=== PATIENT | female | born 1990 | race American Indian/Alaskan Native ===

== ENCOUNTER 2018-11-26 03:19 | Inpatient (IN) | payer BC ==
[2018-11-26 05:35] LABS: Bilirubin,Urine NEG (Negative); Blood,Urine NEG (Negative); Color,Urine Yellow (Yellow); Protein,Urine <15 mg/dL mg/dL (Negative); RBC,Urine < 1.0 /HPF (0.0-6.0)
[2018-11-26 05:36] LABS: HCG Qualitative,Urine Negative (Negative)
[2018-11-26] MEDS ORDERED: FIORICET PO ONE (08:07)
--- NOTE | 2018-11-26 08:07 | Emergency Department Report ---
ED Headache HPI - General Chief Complaint: Headache Stated Complaint: CHRONIC HEADACHE FOR PAST MONTH Time Seen by Provider: 11/26/18 07:58 Source: patient, family Exam Limitations: no limitations - History of Present Illness Initial Comments: Patient is a 28 year-old female who comes to the ER today complaining of a headache for over a month. She states that it comes at night she takes Tylenol and then it goes away: However, it comes right back. It sounds like a cyclical headache that is worse in the evenings. She has no nausea vomiting or photophobia. She has no history of migraines. She has no history of recent head trauma or fall. Past medical history Positive for anemia, patient is unable to provide the details of the anemia, however she states that it's been several years since she has had her blood levels checked. allergy: none Past surgical history denies. Last menstrual period October 29. Primary care physician - none Home medications none, patient does have an IUD 1 para 0 AB 1(miscarriage) mom and dad alive and well denies cig/ etho/ drugs Timing/Duration: 1 week Quality: moderate Head Injury Location: global Recent Head Trauma: no recent headache/trauma, frequent headaches Modifying Factors: worse with: cold therapy, exposure to light, immobilization, medication, movement, rest, other Associated Symptoms: fatigue Allergies/Adverse Reactions: Allergies No Known Allergies Allergy (Unverified 11/26/18 03:21) ED Review of Systems ROS: Stated complaint: CHRONIC HEADACHE FOR PAST MONTH Other details as noted in HPI Comment: All other systems reviewed and negative Cardiovascular: denies: chest pain, palpitations, dyspnea on exertion Endocrine: intolerance to cold. denies: excessive sweating Gastrointestinal: other (heavy menses). denies: abdominal pain Genitourinary: denies: urgency Musculoskeletal: denies: back pain Skin: denies: rash Neurological: as per HPI, headache. denies: weakness, numbness, paresthesias, confusion, abnormal gait, vertigo Psychiatric: denies: depression Hematological/Lymphatic: denies: easy bleeding ED Past Medical Hx - Past Medical History Previous Medical History?: Yes Additional medical history: anemia - Surgical History Past Surgical History?: No Additional Surgical History: IUD - Family History Family history: no significant - Social History Smoking Status: Never Smoker Substance Use Type: None ED Physical Exam - General Limitations: No Limitations General appearance: alert, other (fatigued) - Head Head exam: Present: normocephalic - Eye Eye exam: Present: PERRL - ENT ENT exam: Present: mucous membranes dry, other (pale mucous membranes) - Neck Neck exam: Present: normal inspection - Respiratory Respiratory exam: Present: normal lung sounds bilaterally - Cardiovascular Cardiovascular Exam: Present: regular rate, normal heart sounds - GI/Abdominal GI/Abdominal exam: Present: soft, normal bowel sounds - Rectal Rectal exam: Present: deferred - Extremities Exam Extremities exam: Present: normal inspection, full ROM - Back Exam Back exam: Present: normal inspection, full ROM - Neurological Exam Neurological exam: Present: alert, oriented X3, CN II-XII intact, normal gait - Psychiatric Psychiatric exam: Present: normal affect, normal mood - Skin Skin exam: Present: warm, dry, intact ED Course Vital Signs 11/26/18 11/26/18 03:29 06:20 Temperature 98.8 F 99.2 F Pulse Rate 98 H 86 Respiratory 18 16 Rate Blood Pressure 125/48 112/44 O2 Sat by Pulse 100 100 Oximetry ED Medical Decision Making - Lab Data Result diagrams: 11/26/18 08:17 11/26/18 08:17 - Medical Decision Making Labs 11/26/18 11/26/18 11/26/18 04:45 08:17 08:17 WBC 5.1 RBC 2.38 L Hgb 4.2 L* Hct 13.9 L* MCV 58 L MCH 18 L MCHC 30 RDW 27.7 H Plt Count 363 Sodium 140 Potassium 4.3 Chloride 105.0 Carbon Dioxide 24 Anion Gap 15 BUN 5 L Creatinine 0.5 L Estimated GFR > 60 BUN/Creatinine Ratio 10 Glucose 94 Calcium 8.9 Urine Color Yellow Urine Turbidity Clear Urine pH 7.0 Ur Specific [place] 1.012 Urine Protein <15 mg/dl Urine Glucose (UA) Neg Urine Ketones Neg Urine Blood Neg Urine Nitrite Neg Urine Bilirubin Neg Urine Urobilinogen 4.0 Ur Leukocyte Esterase Neg Urine WBC (Auto) 1.0 Urine RBC (Auto) < 1.0 U Epithel Cells (Auto) < 1.0 Urine HCG, Qual Negative Vital Signs 11/26/18 11/26/18 03:29 06:20 Temperature 98.8 F 99.2 F Pulse Rate 98 H 86 Respiratory 18 16 Rate Blood Pressure 125/48 112/44 O2 Sat by Pulse 100 100 Oximetry pt co headache but is pale and fatigued on exam. She states she has not had her blood levels checked in some time. Labs noted no evidence of bleeding menses 1 month ago; has IUD; mod. heavy periods per pt abd snt Discussed with Dr Eric Gaffney notified and will admit for evaluation. Critical care attestation.: If time is entered above; I have spent that time in minutes in the direct care of this critically ill patient, excluding procedure time. ED Disposition Clinical Impression: Symptomatic anemia Disposition: - OP ADMIT IP TO THIS HOSP Is pt being admited?: Yes Does the pt Need Aspirin: No Condition: Stable Time of Disposition: 10:00
[2018-11-26 08:39] LABS: Mean Corpuscular HGB Conc 30 % (30-34); Platelet Count 363 K/mm3 (140-440); Red Blood Count 2.38 M/mm3 (3.65-5.03)
[2018-11-26 08:51] LABS: BUN/Creatinine Ratio 10; Blood Urea Nitrogen 5 mg/dL (7-17); Calcium 8.9 mg/dL (8.4-10.2); Hemolysis Index 1
[2018-11-26 09:04] LABS: Hematocrit 13.9 % (30.3-42.9); Hemoglobin 4.2 gm/dl (10.1-14.3); Mean Corpuscular Volume 58 fl (79-97); Red Cell Distribution Width 27.7 % (13.2-15.2)
[2018-11-26] MEDS ORDERED: NACL 0.9% 500 ML 500 ML IV ONE (10:10)
--- NOTE | 2018-11-26 11:23 | History and Physical Report ---
History of Present Illness Date of examination: 11/26/18 Date of admission: 11/26/18 10:09 Chief complaint: Headache/symptomatic anemia History of present illness: 28-year-old -[place] African female patient with no significant past medical history except for heavy periods and menorrhagia was admitted through emergency room with chronic headache of one month duration Patient was initially evaluated and noted to have severe anemia probably iron deficiency with hemoglobin of 4.2. Patient complains of some dizziness and generalized weakness Patient denies nausea vomiting or abdominal pain Complains of intermittent fatigued and dizziness Denies chest pain or palpitation Patient denies hematuria hematemesis or melena History of blood transfusion many years ago Past History Past Medical History: anemia. denies: diabetes, hypertension Past Surgical History: Other (miscarriage, IUD) Social history: lives with family, full code. denies: smoking, alcohol abuse Family history: hypertension Medications and Allergies Allergies Allergy/AdvReac Type Severity Reaction Status Date / Time No Known Allergies Allergy Unverified 11/26/18 03:21 Review of Systems Constitutional: fatigue, weakness, no weight loss, no weight gain, no fever, no chills Ears, nose, mouth and throat: no nasal congestion, no nasal discharge Cardiovascular: no chest pain, no orthopnea, no palpitations Respiratory: no cough with sputum, no shortness of breath Gastrointestinal: no abdominal pain, no nausea, no vomiting Genitourinary Female: menorrhagia, no dyspareunia, no pelvic pain Musculoskeletal: no myalgias, no arthritis Integumentary: no rash, no lesions Neurological: headaches, no parathesias, no numbness, no syncope Psychiatric: no anxiety Endocrine: no cold intolerance, no heat intolerance, no polyphagia, no excessive thirst Hematologic/Lymphatic: no easy bruising, no easy bleeding Allergic/Immunologic: no urticaria, no allergic rhinitis Exam - Constitutional Vitals: Temp Pulse Resp BP Pulse Ox 99.2 F 86 16 112/44 100 11/26/18 06:20 11/26/18 06:20 11/26/18 06:20 11/26/18 06:20 11/26/18 06:20 General appearance: Present: mild distress, well-nourished, cachectic, other (pale) - EENT Eyes: Present: PERRL, EOM intact - Neck Neck: Present: supple, normal ROM - Respiratory Respiratory effort: normal Respiratory: bilateral: diminished, negative: rales, rhonchi, wheezing - Cardiovascular Rhythm: regular Heart Sounds: Present: S1 & S2 - Extremities Extremities: no ischemia, No edema - Abdominal General gastrointestinal: Present: soft, non-tender, non-distended, normal bowel sounds - Integumentary Integumentary: Present: clear, warm - Musculoskeletal Musculoskeletal: strength equal bilaterally, generalized weakness - Psychiatric Psychiatric: appropriate mood/affect, cooperative - Neurologic Neurologic: CNII-XII intact, moves all extremities Results - Labs CBC & Chem 7: 11/26/18 08:17 11/26/18 08:17 Labs: Abnormal lab results 11/26/18 11/26/18 11/26/18 Range/Units 08:17 08:17 10:32 RBC 2.38 L (3.65-5.03) M/mm3 Hgb 4.2 L* (10.1-14.3) gm/dl Hct 13.9 L* (30.3-42.9) % MCV 58 L (79-97) fl MCH 18 L (28-32) pg RDW 27.7 H (13.2-15.2) % BUN 5 L (7-17) mg/dL Creatinine 0.5 L (0.7-1.2) mg/dL Crossmatch See Detail Assessment and Plan --Symptomatic anemia; Type and cross, transfuse 2 units of PRBC, iron panel Ferrous sulfate, stool for occult blood Pelvic ultrasound is needed to rule out MOTORCYCLE DELIVERER causes of anemia --Headache; probably secondary to severe anemia, blood transfusion Symptomatic management --Acute versus acute on chronic blood loss anemia; Blood transfusion --Menorrhagia/heavy monthly periods; no active bleeding at this point patient advised to see MOTORCYCLE DELIVERER, For further evaluation and management upon discharge --DVT prophylaxis; SCD Pharmacologic anticoagulation in view of anemia Closely monitor the patient and adjust the management as needed Plan of care reviewed with the patient, family members at the bedside as well as the nurse I spent 45 minutes to coordinate this admission
[2018-11-26] MEDS ORDERED: TYLENOL PO PRN (11:24)
[2018-11-26 20:22] LABS: Hemoglobin 6.6 gm/dl (10.1-14.3)
[2018-11-26] MEDS: FEOSOL PO SCH (21:29)
[2018-11-26] MEDS: PEPCID IV SCH (21:30)
[2018-11-27 06:03] LABS: Hematocrit 21.3 % (30.3-42.9); Hemoglobin 6.7 gm/dl (10.1-14.3); Mean Corpuscular HGB Conc 31 % (30-34); Platelet Count 271 K/mm3 (140-440); Red Blood Count 3.22 M/mm3 (3.65-5.03)
[2018-11-27 06:06] LABS: Mean Corpuscular Volume 66 fl (79-97); Red Cell Distribution Width 30.8 % (13.2-15.2)
[2018-11-27 06:20] LABS: Alanine Aminotransferase 101 units/L (7-56); Albumin 4.1 g/dL (3.9-5); BUN/Creatinine Ratio 8; Blood Urea Nitrogen 4 mg/dL (7-17); Calcium 8.6 mg/dL (8.4-10.2); Hemolysis Index 20; Iron 83 ug/dL (37-170); Total Iron Binding Capacity 451 mcg/dL (250-450)
[2018-11-27 06:55] LABS: Basophils % (Manual) 0 % (0.0-1.8); Eosinophils % (Manual) 0 % (0.0-4.3); Hypochromasia 1+; Platelet Estimate Consistent w Auto; Target Cells Few; Tear Drop Cells Few; Total Cells Counted 100
[2018-11-27] MEDS ORDERED: NACL 0.9% 500 ML 500 ML IV ONE (07:39)
[2018-11-27] MEDS: FEOSOL PO SCH (09:26)
[2018-11-27] MEDS: PEPCID IV SCH (09:26)
--- NOTE | 2018-11-27 11:29 | Discharge Summary ---
Providers - Providers Date of Admission: 11/26/18 10:09 Date of discharge: 11/27/18 Attending physician: SAURABH SHAH Primary care physician: MERCHANDISE EXAMINER Hospitalization Reason for admission: Head ache/gen weakness/symptomatic anemia Condition: Stable Procedures: Transfusion of total 3 units PRBC Hospital course: 28-year-old -[place] female patient with no significant past medical history except for heavy periods and menorrhagia was admitted through emergency room with chronic headache of one month duration Patient was initially evaluated and noted to have severe anemia probably iron deficiency with hemoglobin of 4.2. Patient complains of some dizziness and generalized weakness.Denies hemetemesis,thai or rectal bleeding Patient did not have active bleeding. Symptomatically managed and patient received total 3 units PRBC. Hb improved from 4.2 to 8.1., Patient's symptoms significantly improved.Pt needs out pt Security Services Manager and GI evaluation. Patient has transaminitis,no h/o alcohol use, Pt advised to see private GI for further evaluation of anemia and transaminitis. Today pt is comfortable,no new complaints,vital signs stable Physical exam is unremarkable. Stable for discharge Discharge Diagnosis --Symptomatic anemia; Type and cross, transfuse 2 units of PRBC, iron panel Ferrous sulfate, stool for occult blood Pelvic ultrasound is needed to rule out SUPERVISOR EPOXY FABRICATION causes of anemia --Headache; probably secondary to severe anemia, blood transfusion Symptomatic management --Acute versus acute on chronic blood loss anemia; Blood transfusion --Menorrhagia/heavy monthly periods; no active bleeding at this point patient advised to see SUPERVISOR EPOXY FABRICATION, For further evaluation and management upon discharge --DVT prophylaxis; SCD Pharmacologic anticoagulation in view of anemia Closely monitor the patient and adjust the management as needed Plan of care reviewed with the patient, family members at the bedside as well as the nurse Disposition: DC-01 TO HOME OR SELFCARE Time spent for discharge: 31 min Core Measure Documentation - Palliative Care Palliative Care/ Comfort Measures: Not Applicable - Core Measures Any of the following diagnoses?: none Exam - Constitutional Vitals: Temp Pulse Resp BP Pulse Ox 98.9 F 87 15 95/47 100 11/27/18 08:00 11/27/18 07:50 11/27/18 07:50 11/27/18 07:50 11/27/18 07:50 General appearance: Present: no acute distress, well-nourished - EENT Eyes: Present: PERRL, EOM intact - Neck Neck: Present: supple, normal ROM - Respiratory Respiratory effort: normal Respiratory: negative: rales, rhonchi, wheezing - Cardiovascular Rhythm: regular Heart Sounds: Present: S1 & S2 - Extremities Extremities: no ischemia, No edema - Abdominal General gastrointestinal: Present: soft, non-tender - Integumentary Integumentary: Present: clear, warm - Musculoskeletal Musculoskeletal: strength equal bilaterally - Psychiatric Psychiatric: cooperative - Neurologic Neurologic: moves all extremities Plan Activity: advance as tolerated, fall precautions Diet: regular Additional Instructions: Advised to see a private GI in 1 week, check liver tests prior to seeing GI. Advised to see private SUPERVISOR EPOXY FABRICATION in 1-2 weeks Follow up with: PRIMARY CARE, [Primary Care Provider] - 7 Days ANDREW BROWN MD [Staff Physician] - 7 Days TELMA SORTO MD [Staff Physician] - 7 Days Prescriptions: Ferrous Sulfate [Feosol 325 MG tab] 325 mg PO BID #60 tablet
[2018-11-27 12:10] LABS: Hemoglobin 8.1 gm/dl (10.1-14.3)
[2018-11-27 12:18] VITALS: BP 115/61
== END 2018-11-27 13:49 | disposition home or self-care (01) | DRG 812 ==
LOC: ED 03:19 → IMCU 10:09
PROVIDERS: ADMIT Internal Medicine; ATTEND Internal Medicine
PROC: 30233N1 Transfusion of Nonautologous Red Blood Cells into Peripheral Vein, Percutaneous Approach (ICD-10-PCS; principal; 2018-11-26)
DX: D62 Acute posthemorrhagic anemia (principal); N92.0 Excessive and frequent menstruation with regular cycle; Z82.49 Family history of ischemic heart disease and other diseases of the circulatory system; R51 Headache
CPT/HCPCS: 36415; 80048; 80053; 81001; 81025; 83550; 85007; 85014; 85018; 85025; 85027; 86850; 86900; 86901; 86920; 93005; 93010; G0378; J7040; P9016

== ENCOUNTER 2019-01-30 15:59 | Emergency (ER) | payer BC ==
--- NOTE | 2019-01-30 16:10 | Emergency Department Report ---
Blank Doc - Documentation Documentation: This is a 28-year-old female that presents with anemia. Stated was sent by PCP for a blood transfusion. This initial assessment/diagnostic orders/clinical plan/treatment(s) is/are subject to change based on patient's health status, clinical progression and re- assessment by fellow clinical providers in the ED. Further treatment and workup at subsequent clinical providers discretion. Patient/guardians urged not to elope from the ED as their condition may be serious if not clinically assessed and managed. Initial orders include: 1- Patient sent to MAIN ED for further evaluation and treatment 2- labs
[2019-01-30 16:39] LABS: Hematocrit 20.7 % (30.3-42.9); Hemoglobin 6.3 gm/dl (10.1-14.3); Mean Corpuscular HGB Conc 31 % (30-34); Platelet Count 477 K/mm3 (140-440); Red Blood Count 3.06 M/mm3 (3.65-5.03)
[2019-01-30 16:46] LABS: Mean Corpuscular Volume 68 fl (79-97); Red Cell Distribution Width 32.5 % (13.2-15.2)
[2019-01-30 16:51] LABS: BUN/Creatinine Ratio 8; Blood Urea Nitrogen 5 mg/dL (7-17); Hemolysis Index 6
[2019-01-30] MEDS ORDERED: NACL 0.9% 500 ML 500 ML IV ONE (17:01)
[2019-01-30 17:20] LABS: Basophils % (Manual) 0 % (0.0-1.8); Total Cells Counted 100
[2019-01-30 17:21] LABS: Anisocytosis 2+; Platelet Estimate Consistent w Auto
[2019-01-30 17:22] LABS: Hypochromasia 1+; Ovalocytes Few; Tear Drop Cells Few
--- NOTE | 2019-01-30 17:31 | Emergency Department Report ---
ED General Adult HPI - General Chief complaint: Medical Clearance Stated complaint: SENT BY DOCTOR / IRON Time Seen by Provider: 01/30/19 16:08 Source: patient Mode of arrival: Ambulatory Limitations: No Limitations - History of Present Illness Initial comments: 28-year-old female with a past medical history of iron deficiency anemia and menorrhagia presents to the hospital complaints of recurrent anemia requiring a blood transfusion. Patient is followed by numberer and wirer Dr. Dutton. She had outpatient blood work reporting a hemoglobin of 5.7. She was sent to the ER with a note requesting 2 units of PRBCs to be transfused in the ED. Patient denies symptoms of chest pain, shortness of breath, lightheadedness, dizziness or exertion, or syncope. She has been on her menstrual cycle since January 23 but states she is on average using 2 pads per day and it is not heavy. No pain reported. Patient was admitted here in November and received 3 units of PRBCs for hemoglobin of 4.2. - Related Data Previous Rx's Medication Instructions Recorded Last Taken Type Ferrous Sulfate [Feosol 325 MG tab] 325 mg PO BID #60 tablet 11/27/18 Unknown Rx Allergies Allergy/AdvReac Type Severity Reaction Status Date / Time No Known Allergies Allergy Unverified 11/26/18 03:21 ED Review of Systems ROS: Stated complaint: SENT BY DOCTOR / IRON Other details as noted in HPI Comment: All other systems reviewed and negative ED Past Medical Hx - Past Medical History Previous Medical History?: Yes Hx Congestive Heart Failure: No Hx Diabetes: No Hx Asthma: No Hx COPD: No Additional medical history: anemia - Surgical History Past Surgical History?: No Additional Surgical History: IUD - Social History Smoking Status: Never Smoker Substance Use Type: None - Medications Home Medications: Home Medications Medication Instructions Recorded Confirmed Last Taken Type Ferrous Sulfate [Feosol 325 MG tab] 325 mg PO BID #60 tablet 11/27/18 Unknown Rx ED Physical Exam - General Limitations: No Limitations - Other Other exam information: General: No limitations, patient is alert in no acute distress Head exam: Atraumatic, normocephalic Eyes exam: Normal appearance ENT: Moist mucous membrane Neck exam: Normal inspection, full range of motion, no meningismus nontender Respiratory exam: Clear to auscultation bilateral, no wheezes, rales, crackles Cardiovascular: Normal rate and rhythm, normal heart sounds Abdomen: Soft, nondistended, and nontender, with normal bowel sounds, no rebound, or guarding Extremity: Full range of motion normal inspection no deformity Back: Normal Inspection, full range of motion, no tenderness Neurologic: Alert, oriented x3, cranial nerves intact, no motor or sensory deficit Psychiatric: normal affect, normal mood Skin: Warm, dry, intact ED Course Vital Signs 01/30/19 01/30/19 01/30/19 16:08 18:45 19:23 Temperature 98.3 F 99.1 F Pulse Rate 88 85 77 Respiratory 16 18 19 Rate Blood Pressure 112/59 Blood Pressure 103/54 100/52 [Left] O2 Sat by Pulse 100 100 100 Oximetry 01/30/19 01/30/19 01/30/19 19:59 20:14 20:44 Temperature 98.9 F 98.7 F 99.1 F Pulse Rate 84 81 86 Respiratory 12 12 16 Rate Blood Pressure 101/57 102/54 106/53 Blood Pressure [Left] O2 Sat by Pulse 100 100 100 Oximetry 01/30/19 01/30/19 01/30/19 21:14 21:44 22:14 Temperature 99.0 F 98.9 F 99.1 F Pulse Rate 85 87 85 Respiratory 13 13 18 Rate Blood Pressure 102/61 106/57 106/55 Blood Pressure [Left] O2 Sat by Pulse 100 100 100 Oximetry 01/30/19 01/30/19 01/30/19 22:44 23:14 23:30 Temperature 99.0 F 99.0 F 99.1 F Pulse Rate 86 78 80 Respiratory 13 13 15 Rate Blood Pressure 116/71 110/66 108/65 Blood Pressure [Left] O2 Sat by Pulse 99 100 100 Oximetry 01/30/19 01/30/19 01/31/19 23:32 23:47 00:17 Temperature 99.1 F 98.5 F 98.9 F Pulse Rate 80 80 77 Respiratory 15 16 19 Rate Blood Pressure 108/65 108/63 106/61 Blood Pressure [Left] O2 Sat by Pulse 100 100 100 Oximetry - Consultations Consultation #1: 01/30/19 17:[address] Dutton. Patient will receive 2 units of PRBCs and then discharged from the ED after completion of transfusion. ED Medical Decision Making - Lab Data Result diagrams: 01/30/19 16:12 01/30/19 16:12 Lab Results 01/30/19 01/30/19 01/30/19 Range/Units 16:12 16:12 16:12 WBC 7.6 (4.5-11.0) K/mm3 RBC 3.06 L (3.65-5.03) M/mm3 Hgb 6.3 L (10.1-14.3) gm/dl Hct 20.7 L (30.3-42.9) % MCV 68 L (79-97) fl MCH 21 L (28-32) pg MCHC 31 (30-34) % RDW 32.5 H (13.2-15.2) % Plt Count 477 H (140-440) K/mm3 Add Manual Diff Complete Total Counted 100 Seg Neuts % (Manual) 74.0 H (40.0-70.0) % Band Neutrophils % 0 % Lymphocytes % (Manual) 20.0 (13.4-35.0) % Reactive Lymphs % (Man) 0 % Monocytes % (Manual) 3.0 (0.0-7.3) % Eosinophils % (Manual) 3.0 (0.0-4.3) % Basophils % (Manual) 0 (0.0-1.8) % Metamyelocytes % 0 % Myelocytes % 0 % Promyelocytes % 0 % Blast Cells % 0 % Nucleated RBC % Not Reportable Seg Neutrophils # Man 5.6 (1.8-7.7) K/mm3 Band Neutrophils # 0.0 K/mm3 Lymphocytes # (Manual) 1.5 (1.2-5.4) K/mm3 Abs React Lymphs (Man) 0.0 K/mm3 Monocytes # (Manual) 0.2 (0.0-0.8) K/mm3 Eosinophils # (Manual) 0.2 (0.0-0.4) K/mm3 Basophils # (Manual) 0.0 (0.0-0.1) K/mm3 Metamyelocytes # 0.0 K/mm3 Myelocytes # 0.0 K/mm3 Promyelocytes # 0.0 K/mm3 Blast Cells # 0.0 K/mm3 WBC Morphology Not Reportable Hypersegmented Neuts Not Reportable Hyposegmented Neuts Not Reportable Hypogranular Neuts Not Reportable Smudge Cells Not Reportable Toxic Granulation Not Reportable Toxic Vacuolation Not Reportable Dohle Bodies Not Reportable Pelger-Huet Anomaly Not Reportable Evangelist Rods Not Reportable Platelet Estimate Consistent w auto Clumped Platelets Not Reportable Plt Clumps, EDTA Not Reportable Large Platelets Not Reportable Giant Platelets Not Reportable Platelet Satelliting Not Reportable Plt Morphology Comment Not Reportable RBC Morphology Not Reportable Dimorphic RBCs Not Reportable Polychromasia Not Reportable Hypochromasia 1+ Poikilocytosis Not Reportable Anisocytosis 2+ Microcytosis 1+ Macrocytosis Not Reportable Spherocytes Not Reportable Pappenheimer Bodies Not Reportable Sickle Cells Not Reportable Target Cells Not Reportable Tear Drop Cells Few Ovalocytes Few Helmet Cells Not Reportable [place] Bodies Not Reportable [place] Rings Not Reportable Samuel Cells Not Reportable Bite Cells Not Reportable Crenated Cell Not Reportable Elliptocytes Few Acanthocytes (Spur) Not Reportable Rouleaux Not Reportable Hemoglobin C Crystals Not Reportable Schistocytes Not Reportable Malaria parasites Not Reportable Ranulfo Bodies Not Reportable Hem Pathologist Commnt No Sodium 139 (137-145) mmol/L Potassium 3.8 (3.6-5.0) mmol/L Chloride 103.4 (98-107) mmol/L Carbon Dioxide 24 (22-30) mmol/L Anion Gap 15 mmol/L BUN 5 L (7-17) mg/dL Creatinine 0.6 L (0.7-1.2) mg/dL Estimated GFR > 60 ml/min BUN/Creatinine Ratio 8 % Glucose 92 (65-100) mg/dL Calcium 9.0 (8.4-10.2) mg/dL Blood Type O POSITIVE Crossmatch See Detail - Medical Decision Making pt received 2 U PRBC. she is stable and asymptomatic she will be d/helio to f/u with [facility] - Differential Diagnosis iron deficiency anemia, menorrhagia, anemia of chronic disease Critical Care Time: No Critical care attestation.: If time is entered above; I have spent that time in minutes in the direct care of this critically ill patient, excluding procedure time. ED Disposition Clinical Impression: Anemia, Encounter for blood transfusion Disposition: DC-01 TO HOME OR SELFCARE Is pt being admited?: No Does the pt Need Aspirin: No Condition: Stable Instructions: Anemia (ED) Additional Instructions: Follow up with your doctor or the clinic/doctor provided. Return if symptoms worsen as indicated by your discharge instructions Referrals: VELASQUEZ CUEVA MD [Staff Physician] - 3-5 Days Time of Disposition: 00:42
[2019-01-31 01:00] VITALS: BP 115/73
== END 2019-01-31 00:59 | disposition home or self-care (01) ==
LOC: ED 15:59
DX: D64.9 Anemia, unspecified (principal)
CPT/HCPCS: 36415; 36430; 80048; 85007; 85025; 86850; 86900; 86901; 99283; J7040; P9016

== ENCOUNTER 2019-03-13 14:37 | Emergency (ER) | payer BC ==
--- NOTE | 2019-03-13 15:00 | Event Note ---
ED Screening Note Date of service: 03/13/19 Time: 14:58 ED Screening Note: 29 y/o female with intermittent vaginal bleeding. 2 pads today. Reports she has a IUD This initial assessment/diagnostic orders/clinical plan/treatment(s) is/are subject to change based on patients health status, clinical progression and re- assessment by fellow clinical providers in the ED. Further treatment and workup at subsequent clinical providers discretion. Patient/guardian urged not to elope from the ED as their condition may be serious if not clinically assessed and managed. Initial orders include:
[2019-03-13 15:22] LABS: Hematocrit 22.8 % (30.3-42.9); Hemoglobin 6.8 gm/dl (10.1-14.3); Mean Corpuscular HGB Conc 30 % (30-34); Platelet Count 168 K/mm3 (140-440); Red Blood Count 3.28 M/mm3 (3.65-5.03)
[2019-03-13 15:23] LABS: Mean Corpuscular Volume 69 fl (79-97); Red Cell Distribution Width 30.9 % (13.2-15.2)
[2019-03-13 15:47] LABS: Alanine Aminotransferase 77 units/L (7-56); Albumin 4.3 g/dL (3.9-5); BUN/Creatinine Ratio 12; Blood Urea Nitrogen 7 mg/dL (7-17); Calcium 8.9 mg/dL (8.4-10.2); Hemolysis Index 0
[2019-03-13 15:48] LABS: Bilirubin,Urine NEG (Negative); Blood,Urine SM (Negative); Color,Urine Yellow (Yellow); Mucus,Urine 1+ /HPF; Protein,Urine <15 mg/dL mg/dL (Negative)
[2019-03-13 16:09] LABS: Basophils % (Manual) 0 % (0.0-1.8); Total Cells Counted 100
[2019-03-13 16:10] LABS: Platelet Estimate Consistent w Auto
[2019-03-13 16:11] LABS: Anisocytosis 2+; Hypochromasia 1+; Ovalocytes Few; Tear Drop Cells Few
[2019-03-13] MEDS ORDERED: K-DUR PO ONE (18:25)
--- NOTE | 2019-03-13 18:31 | Emergency Department Report ---
ED Female HPI - General Chief complaint: Vaginal Bleeding Stated complaint: VAGINAL BLEED Time Seen by Provider: 03/13/19 18:21 Source: patient, RN notes reviewed, old records reviewed Mode of arrival: Ambulatory Limitations: No Limitations - History of Present Illness Initial comments: Gynecology: Dr. lCarence Reese This is a 29-year-old female, reported history of painless chronic transaminitis, has been referred to gastroenterology in the past, history of chronic vaginal bleeding, history of fibroids, history of chronic microcytic anemia, reports current IUD, reports current use of iron sulfate supplementation. The patient is not known to this provider previously. The patient presents to the emergency room today with a complaint of painless vaginal bleeding for 2 weeks. In the past 12 hours, she has used 3 pads. She denies headache, neck pain, chest pain, abdominal pain, shortness of breath, weakness or numbness. She denies other complaints. Her bleeding is intermittent, painless, does not radiate anywhere, does not have exacerbating or relieving factors. MD Complaint: vaginal bleeding -: Gradual, week(s) Consistency: intermittent Improves with: none Worsens with: none Are you Now?: No Associated Symptoms: vaginal bleeding - Related Data Previous Rx's Medication Instructions Recorded Last Taken Type Ferrous Sulfate [Feosol 325 MG tab] 325 mg PO BID #60 tablet 11/27/18 Unknown Rx medroxyPROGESTERone ACETATE 10 mg PO QDAY #14 tablet 03/13/19 Unknown Rx [Provera] Allergies Allergy/AdvReac Type Severity Reaction Status Date / Time No Known Allergies Allergy Unverified 11/26/18 03:21 ED Review of Systems ROS: Stated complaint: VAGINAL BLEED Other details as noted in HPI Constitutional: denies: fever Eyes: denies: eye discharge ENT: denies: epistaxis Respiratory: denies: cough Cardiovascular: denies: palpitations Gastrointestinal: denies: abdominal pain, nausea, vomiting Genitourinary: abnormal menses Musculoskeletal: denies: arthralgia Skin: denies: lesions Neurological: denies: weakness Psychiatric: denies: anxiety ED Past Medical Hx - Past Medical History Previous Medical History?: Yes Hx Congestive Heart Failure: No Hx Diabetes: No Hx Asthma: No Hx COPD: No Additional medical history: anemia - Surgical History Past Surgical History?: No Additional Surgical History: IUD - Social History Smoking Status: Never Smoker Substance Use Type: None - Medications Home Medications: Home Medications Medication Instructions Recorded Confirmed Last Taken Type Ferrous Sulfate [Feosol 325 MG tab] 325 mg PO BID #60 tablet 11/27/18 Unknown Rx medroxyPROGESTERone ACETATE 10 mg PO QDAY #14 tablet 03/13/19 Unknown Rx [Provera] ED Physical Exam - General Limitations: No Limitations General appearance: alert, in no apparent distress - Head Head exam: Present: atraumatic, normocephalic - Eye Eye exam: Present: normal appearance, EOMI. Absent: nystagmus - ENT ENT exam: Present: normal exam, normal orophraynx, mucous membranes moist, normal external ear exam - Neck Neck exam: Present: normal inspection, full ROM. Absent: tenderness, meningismus - Respiratory Respiratory exam: Present: normal lung sounds bilaterally. Absent: respiratory distress - Cardiovascular Cardiovascular Exam: Present: regular rate, normal rhythm, normal heart sounds. Absent: bradycardia, irregular rhythm, systolic murmur, diastolic murmur, rubs, gallop - GI/Abdominal GI/Abdominal exam: Present: soft. Absent: distended, tenderness, guarding, rebound, rigid, pulsatile mass - External exam: Present: normal external exam, other (CHAPERONED BY ER Director Funds Development Mireya) Speculum exam: Present: vaginal bleeding - Extremities Exam Extremities exam: Present: normal inspection, full ROM, other (2+ pulses noted in the bilateral upper, lower extremities. Compartments soft. No long bony t enderness. The pelvis is stable.). Absent: pedal edema, joint swelling, calf tenderness - Back Exam Back exam: Present: normal inspection, full ROM. Absent: tenderness, CVA tenderness (R), CVA tenderness (L), paraspinal tenderness, vertebral tenderness - Neurological Exam Neurological exam: Present: alert, oriented X3, normal gait, other (Extraocular movements intact. Tongue midline. No facial droop. Facial sensation intact to light touch in the V1, V2, V3 distribution bilaterally. 5 and 5 strength in 4 extremities.. Sensation is intact to light touch in 4 extremities.). Absent: motor sensory deficit - Psychiatric Psychiatric exam: Present: normal affect, normal mood - Skin Skin exam: Present: warm, dry, intact, normal color. Absent: rash ED Course Vital Signs 03/13/19 03/13/19 14:53 17:45 Temperature 98.7 F 98.6 F Pulse Rate 118 H 106 H Respiratory 18 18 Rate Blood Pressure 115/64 118/77 O2 Sat by Pulse 100 98 Oximetry ED Medical Decision Making - Lab Data Result diagrams: 03/13/19 15:01 03/13/19 15:01 Vital Signs 03/13/19 03/13/19 14:53 17:45 Temperature 98.7 F 98.6 F Pulse Rate 118 H 106 H Respiratory 18 18 Rate Blood Pressure 115/64 118/77 O2 Sat by Pulse 100 98 Oximetry Lab Results 03/13/19 03/13/19 03/13/19 Range/Units 15:01 15:01 15:26 WBC 6.2 (4.5-11.0) K/mm3 RBC 3.28 L (3.65-5.03) M/mm3 Hgb 6.8 L (10.1-14.3) gm/dl Hct 22.8 L (30.3-42.9) % MCV 69 L (79-97) fl MCH 21 L (28-32) pg MCHC 30 (30-34) % RDW 30.9 H (13.2-15.2) % Plt Count 168 (140-440) K/mm3 Add Manual Diff Complete Total Counted 100 Seg Neuts % (Manual) 60.0 (40.0-70.0) % Band Neutrophils % 0 % Lymphocytes % (Manual) 29.0 (13.4-35.0) % Reactive Lymphs % (Man) 0 % Monocytes % (Manual) 7.0 (0.0-7.3) % Eosinophils % (Manual) 4.0 (0.0-4.3) % Basophils % (Manual) 0 (0.0-1.8) % Metamyelocytes % 0 % Myelocytes % 0 % Promyelocytes % 0 % Blast Cells % 0 % Nucleated RBC % Not Reportable Seg Neutrophils # Man 3.7 (1.8-7.7) K/mm3 Band Neutrophils # 0.0 K/mm3 Lymphocytes # (Manual) 1.8 (1.2-5.4) K/mm3 Abs React Lymphs (Man) 0.0 K/mm3 Monocytes # (Manual) 0.4 (0.0-0.8) K/mm3 Eosinophils # (Manual) 0.2 (0.0-0.4) K/mm3 Basophils # (Manual) 0.0 (0.0-0.1) K/mm3 Metamyelocytes # 0.0 K/mm3 Myelocytes # 0.0 K/mm3 Promyelocytes # 0.0 K/mm3 Blast Cells # 0.0 K/mm3 WBC Morphology Not Reportable Hypersegmented Neuts Not Reportable Hyposegmented Neuts Not Reportable Hypogranular Neuts Not Reportable Smudge Cells Not Reportable Toxic Granulation Not Reportable Toxic Vacuolation Not Reportable Dohle Bodies Not Reportable Pelger-Huet Anomaly Not Reportable Evangelist Rods Not Reportable Platelet Estimate Consistent w auto Clumped Platelets Not Reportable Plt Clumps, EDTA Not Reportable Large Platelets Not Reportable Giant Platelets Not Reportable Platelet Satelliting Not Reportable Plt Morphology Comment Not Reportable RBC Morphology Not Reportable Dimorphic RBCs Not Reportable Polychromasia Not Reportable Hypochromasia 1+ Poikilocytosis Not Reportable Anisocytosis 2+ Microcytosis 1+ Macrocytosis Not Reportable Spherocytes Not Reportable Pappenheimer Bodies Not Reportable Sickle Cells Not Reportable Target Cells Not Reportable Tear Drop Cells Few Ovalocytes Few Helmet Cells Not Reportable Francis-Phillips Bodies Not Reportable [place] Rings Not Reportable [place] Cells Not Reportable Bite Cells Not Reportable Crenated Cell Not Reportable Elliptocytes Not Reportable Acanthocytes (Spur) Not Reportable Rouleaux Not Reportable Hemoglobin C Crystals Not Reportable Schistocytes Not Reportable Malaria parasites Not Reportable Ranulfo Bodies Not Reportable Hem Pathologist Commnt No Sodium 140 (137-145) mmol/L Potassium 3.3 L (3.6-5.0) mmol/L Chloride 102.0 (98-107) mmol/L Carbon Dioxide 25 (22-30) mmol/L Anion Gap 16 mmol/L BUN 7 (7-17) mg/dL Creatinine 0.6 L (0.7-1.2) mg/dL Estimated GFR > 60 ml/min BUN/Creatinine Ratio 12 % Glucose 97 (65-100) mg/dL Calcium 8.9 (8.4-10.2) mg/dL Total Bilirubin 0.70 (0.1-1.2) mg/dL AST 75 H (5-40) units/L ALT 77 H (7-56) units/L Alkaline Phosphatase 164 H (35-129) units/L Total Protein 7.4 (6.3-8.2) g/dL Albumin 4.3 (3.9-5) g/dL Albumin/Globulin Ratio 1.4 % HCG, Quant (0-4) mIU/mL Urine Color Yellow (Yellow) Urine Turbidity Slightly-cloudy (Clear) Urine pH 6.0 (5.0-7.0) Ur Specific [place] 1.018 (1.003-1.030) Urine Protein <15 mg/dl (Negative) mg/dL Urine Glucose (UA) Neg (Negative) mg/dL Urine Ketones Neg (Negative) mg/dL Urine Blood Sm (Negative) Urine Nitrite Neg (Negative) Urine Bilirubin Neg (Negative) Urine Urobilinogen 4.0 (<2.0) mg/dL Ur Leukocyte Esterase Neg (Negative) Urine WBC (Auto) 2.0 (0.0-6.0) /HPF Urine RBC (Auto) 1.0 (0.0-6.0) /HPF U Epithel Cells (Auto) 1.0 (0-13.0) /HPF Urine Mucus 1+ /HPF Blood Type Antibody Screen 03/13/19 03/13/19 Range/Units 16:13 16:50 WBC (4.5-11.0) K/mm3 RBC (3.65-5.03) M/mm3 Hgb (10.1-14.3) gm/dl Hct (30.3-42.9) % MCV (79-97) fl MCH (28-32) pg MCHC (30-34) % RDW (13.2-15.2) % Plt Count (140-440) K/mm3 Add Manual Diff Total Counted Seg Neuts % (Manual) (40.0-70.0) % Band Neutrophils % % Lymphocytes % (Manual) (13.4-35.0) % Reactive Lymphs % (Man) % Monocytes % (Manual) (0.0-7.3) % Eosinophils % (Manual) (0.0-4.3) % Basophils % (Manual) (0.0-1.8) % Metamyelocytes % % Myelocytes % % Promyelocytes % % Blast Cells % % Nucleated RBC % Seg Neutrophils # Man (1.8-7.7) K/mm3 Band Neutrophils # K/mm3 Lymphocytes # (Manual) (1.2-5.4) K/mm3 Abs React Lymphs (Man) K/mm3 Monocytes # (Manual) (0.0-0.8) K/mm3 Eosinophils # (Manual) (0.0-0.4) K/mm3 Basophils # (Manual) (0.0-0.1) K/mm3 Metamyelocytes # K/mm3 Myelocytes # K/mm3 Promyelocytes # K/mm3 Blast Cells # K/mm3 WBC Morphology Hypersegmented Neuts Hyposegmented Neuts Hypogranular Neuts Smudge Cells Toxic Granulation Toxic Vacuolation Dohle Bodies Pelger-Huet Anomaly Evangelist Rods Platelet Estimate Clumped Platelets Plt Clumps, EDTA Large Platelets Giant Platelets Platelet Satelliting Plt Morphology Comment RBC Morphology Dimorphic RBCs Polychromasia Hypochromasia Poikilocytosis Anisocytosis Microcytosis Macrocytosis Spherocytes Pappenheimer Bodies Sickle Cells Target Cells Tear Drop Cells Ovalocytes Helmet Cells Francis-Phillips Bodies [place] Rings [place] Cells Bite Cells Crenated Cell Elliptocytes Acanthocytes (Spur) Rouleaux Hemoglobin C Crystals Schistocytes Malaria parasites Ranulfo Bodies Hem Pathologist Commnt Sodium (137-145) mmol/L Potassium (3.6-5.0) mmol/L Chloride (98-107) mmol/L Carbon Dioxide (22-30) mmol/L Anion Gap mmol/L BUN (7-17) mg/dL Creatinine (0.7-1.2) mg/dL Estimated GFR ml/min BUN/Creatinine Ratio % Glucose (65-100) mg/dL Calcium (8.4-10.2) mg/dL Total Bilirubin (0.1-1.2) mg/dL AST (5-40) units/L ALT (7-56) units/L Alkaline Phosphatase (35-129) units/L Total Protein (6.3-8.2) g/dL Albumin (3.9-5) g/dL Albumin/Globulin Ratio % HCG, Quant < 2 (0-4) mIU/mL Urine Color (Yellow) Urine Turbidity (Clear) Urine pH (5.0-7.0) Ur Specific [place] (1.003-1.030) Urine Protein (Negative) mg/dL Urine Glucose (UA) (Negative) mg/dL Urine Ketones (Negative) mg/dL Urine Blood (Negative) Urine Nitrite (Negative) Urine Bilirubin (Negative) Urine Urobilinogen (<2.0) mg/dL Ur Leukocyte Esterase (Negative) Urine WBC (Auto) (0.0-6.0) /HPF Urine RBC (Auto) (0.0-6.0) /HPF U Epithel Cells (Auto) (0-13.0) /HPF Urine Mucus /HPF Blood Type O POSITIVE Antibody Screen Negative - Medical Decision Making Differential diagnosis, including not limited to: Fibroids, chronic microcytic anemia, dysfunctional uterine bleeding Assessment and plan: 29-year-old female with painless basically asymptomatic vaginal bleeding. She has chronic microcytic anemia. Her tachycardia is resolved on my exam, heart rate approximately 85 bpm. She has no physical pain. Contacted her private rental coordinator, Dr. Clarence Reese, who recommended Pro vera, 10 mg daily, for 2 weeks. He indicates he is amenable to follow the patient up as an outpatient. Discussed laboratory findings with patient. Discussed need to follow up as an outpatient. The patient denies DVT, pulmonary embolus risk factors, she does not smoke. The patient was informed of the risks of Provera, including DVT and pulmonary embolus, and through shared decision making, we agreed to initiate Provera medication as recommended by her rental coordinator. She can follow-up with an outpatient primary care doctor for her incidental chronic transaminitis, and hypokalemia. Critical care attestation.: If time is entered above; I have spent that time in minutes in the direct care of this critically ill patient, excluding procedure time. ED Disposition Clinical Impression: Vaginal bleeding, Microcytic anemia Disposition: DC- TO HOME OR SELFCARE Is pt being admited?: No Does the pt Need Aspirin: No Condition: Good Additional Instructions: Take medications as directed. Follow-up with her rental coordinator within 10-14 days. Laboratory studies demonstrated nonspecific elevation in liver function tests, and slightly decreased potassium. Please follow up with her primary care doctor for this within 4-6 weeks. Return to the emergency room right away with new, worse or different symptoms, bleeding more than 2 pads soaked for hour, lightheadedness, dizziness, severe shortness of breath, or new, worsening or different symptoms not present on the initial emergency room evaluation. Prescriptions: medroxyPROGESTERone ACETATE [Provera] 10 mg PO QDAY #14 tablet Referrals: CLARENCE REESE MD [Primary Care Provider] - 3-5 Days [facility] [Provider Group] - 7-10 days
[2019-03-13 20:37] VITALS: BP 115/78
== END 2019-03-13 20:37 | disposition home or self-care (01) ==
LOC: ED 14:37
DX: D50.9 Iron deficiency anemia, unspecified (principal); N93.9 Abnormal uterine and vaginal bleeding, unspecified; Z79.899 Other long term (current) drug therapy
CPT/HCPCS: 36415; 80053; 81001; 83735; 84702; 85007; 85025; 86850; 86900; 86901; 99284